=== PATIENT | female | born 1975 | race Caucasian/White ===

== ENCOUNTER 2016-07-22 21:10 | Emergency (ER) | payer OTHER ==
[~2016-07-22] VITALS: Ht 162.6 cm; Wt 156.5 kg
[~2016-07-22 21:10] MED LIST: ALLEGRA 180MG180 MG PO; AMBIEN5 MG PO; ANTIVERT GENERI25 MG PO; BUDEPRION XL150 MG PO; CIPRO 250MG TA250 MG PO; CIPRO 500MG TA500 MG PO; ETODOLAC400 MG PO; FIORICET 325 MG1 TAB PO; FLEXERIL10 MG PO; LASIX20 MG PO; LEVOTHROID0.025 MG PO; LEVOTHYROXIN0.125 M2 PO; LISINOPRIL 10MG10 MG PO; LODINE400 MG PO; LORTAB 5/500 501 TAB PO; MAXZIDE 25 MG-31 TAB PO; MEDROL 4MG. DOSE4 MG PO; METFORMIN 500M500 M1 PO; METFORMIN500 MG PO; NAPROSYN 500MG500 MG PO; NAPROXEN500 MG PO; PHENERGAN 25MG.25 M1 PO; PROPRANOLOL HCL20 MG PO; PROZAC 20MG CAP20 MG PO; TETRACYCLINE PO; TOPAMAX200 MG PO; TOPIRAMATE50 MG PO; VICODIN 5/500 T1 TAB PO; VICODIN 5/6 EACH/PAK OR; VICODIN 7.5/501 EACH PO; XANAX 1MG TABLET1 MG PO; XANAX0.5 MG PO
[2016-07-22 21:38] LABS: HEMOGLOBIN 13.1 g/dL (12.2-16.2); LYMPH # 2.3 K/mm3 (0.7-4.5); LYMPH % 20.1 % (10-50.0)
--- NOTE | 2016-07-22 21:42 | Emergency Room Report ---
History of Present Illness Time Seen by [id number] Presenting Problem in Triage Pt arrived:Wheelchair Presenting Problem:PT STATES SHE FELL AT WORK SATURDAY AND HAD XRAYS, NOTHING WAS BROKEN, NOW RIB CAGE HURTS AND SHARP PAINS ARE RADIATING FROM THE LEFT CHEST WALL TO THE SHOULDER. 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 N Clinical Suspician of Infection? N Mental Status: 1 - Regular (Normal Baseline) Sepsis Risk:Low Sepsis Risk Have you (or family members/close friends) recently traveled outside the [place]? N If Yes, where/when: Have you had exposure to infectious disease within the past month? N TB? Other? Specify: Source patient, RN notes reviewed, family, RN/MD, EMS notes reviewed Exam Limitations no limitations Comment A 41-year-old female patient arriving to the emergency room with LEFT lower wrist pain, worse with decreased rotation and palpation of the anterior chest wall. Patient stated that she was seen here last Saturday after sustaining a fall and landing on her chest. Her chest x-ray taken at that time was negative. She was diagnosed with a contusion. Patient is advising that today pain is worse, denies any other trauma aside of the one encountered 4 days ago. She is also denying any fever, cough, shortness of breath. ALLERGIES Coded Allergies: Cephalosporins (Mild, I-HIVES 08/09/15) sulfamethazine (Mild, I-HIVES 08/09/15) tramadol (Mild, 08/09/15) trimethoprim (Mild, I-HIVES 08/09/15) codeine (08/09/15) Uncoded Allergies: CONTRAST MEDIA (Mild, PASS OUT 04/20/15) Home Medications Active Scripts Levothyroxine Sodium (Levothroid) 250 MCG PO DAILY #30 TAB Ref 1 Prov: 11/15/14 Metformin HCl (Metformin) 500 MG PO BID #60 TAB Ref 2 Prov: 11/15/14 Furosemide (Lasix) 20 MG PO DAILY #30 TAB Ref 3 Prov: 02/02/15 Reported Medications Alprazolam (Xanax 1MG) 2 MG PO DAILYP PRN ANXIETY Propranolol Hcl 20 MG PO BID History Medical History General CAD? No Angina: Yes MD: No Hypertension? Yes Hyperlipidemia? Yes CHF? No DVT? No PE? No COPD? No Asthma? No Anemia? No GERD? Yes Gastric ulcers? No GI Bleed? No Hernia? No Thyroid Problems? Yes Hypothyroidism? Yes CVA? No Seizures? No Diabetes? Yes Insulin Dependent: No Insulin Pump: No Home FSBS? Yes Renal Insuffiency? No End Stage Renal Disease? No UTI? Yes Stones? Yes BPH? No GB Disease: Yes Nephritic Syndrome? No Asplenia? No Hepatitis? No Sickle Cell Disease? No Arthritis? No Migraines? Yes Cataracts? No Glaucoma? No MRSA? No HIV? No TB? No Anxiety? Yes Depression? No Cancer? No More? 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 Family History Family Hx Diabetes Yes CAD Yes Hypertension Yes Hyperlipidemia Yes Cancer Yes TB No Social History Smoking Hx Smoker: Former Smoker Tobacco: No Type Cigarettes Packs/day N/A Alcohol Alcohol: No Review of Systems All Other Systems Reviewed and Negative Cardiovascular chest pain Physical Exam Vital Signs Vital Signs Date Time Temp Pulse Resp B/P Pulse O2 O2 Flow FiO2 Ox Delivery Rate 07/23 0021 98.1 80 16 143/84 99 07/23 0014 18 07/22 2348 74 24 133/79 98 07/22 2323 71 20 167/99 98 2 07/22 2250 77 24 175/80 98 2 07/22 2213 97.9 81 18 113/61 95 07/22 2202 18 07/22 2138 95 07/225 97.9 79 18 145/67 98 General Appearance normal appearance, WD/WN, mild distress Respiratory Status Yes: trachea midline, chest symmetrical, tender on palpation (LEFT side). No: respiratory distress. Lung Sounds bilateral: normal breath sounds, lungs clear. Cardiovascular normal exam, regular rate/rhythm, no peripheral edema, no gallop, no JVD, no murmur, no rub, normal peripheral pulses Gastrointestinal normal bowel sounds, normal exam, non tender, soft, no organomegaly Extremities non-tender, normal range of motion, normal inspection Neurologic alert, tank terminal gauger II-XII nml as tested, normal exam, oriented x 3 Mental status normal mood/affect Skin intact, normal color, warm/dry Medical Decision Making LABS/Meds/Orders Pt receiving controlled substance in ED? No Comment Upon reevaluation patient appears medically stable, still complaining with LEFT lower wrist pain. Advised patient results obtained, need to start antibiotics, and follow-up with PCP if not better within 2-3 days. Results/Orders Laboratory Tests 07/22/162124: B-Natriuretic Peptide 126 H, Lipase 105 07/22/162124: Amylase 32 07/22/162124: Sodium 136, Potassium 3.7, Chloride 100, Carbon Dioxide 28, BUN 14, Creatinine 1.0, Estimated Creat Clear 179, Estimated GFR (MDRD) 61, Glucose 181 H, Calcium 8.8, Total Bilirubin 0.4, AST 41 H, ALT 48, Alkaline Phosphatase 112, Creatine Kinase 35, CK and CKMB Interp 1.0, Troponin I < 0.02, Total Protein 7.5, Albumin 3.2 L, Globulin 4.3 H, Albumin/Globulin Ratio 0.7 L, D-Dimer 348, WBC 11.2 H , RBC 4.29, Hgb 13.1, Hct 38.2, MCV 89.1, RDW 15.2, Plt Count 259, MPV 7.4, Gran % 72.9, Gran # 8.2 H, Lymphocytes % 20.1, Monocytes % 4.9, Eosinophils % 1.8, Basophils % 0.4, Lymphocytes # 2.3, Monocytes # 0.5, Eosinophils # 0.2, Basophils # 0.0, PUBS MCHC 34.2, MCH 30.5 Current Medication Orders Sig/Belinda Start time Last Medication Dose Route Stop Time Status Admin Hydromorphone HCl 0 .STK-MED ONE 07/23 11 DCr .ROUTE Levofloxacin 0 .STK-MED ONE 07/23 11 DC .ROUTE Ondansetron HCl 0 .STK-MED ONE 07/23 11 DC .ROUTE Hydromorphone HCl 1 MG ONCE ONE 07/22 2329 DCr 07/23 IV 07/22 Levofloxacin 750 MG ONCE ONE 07/22 2329 DC 07/23 PO 02/19 2331 0013 Ondansetron HCl 4 MG ONCE ONE 07/220 DC 07/23 IV 07/22 2330 0014 Aspirin 324 MG ONCE ONE 07/22 2199 DCr 07/22 PO 07/22 Morphine Sulfate 4 MG ONCE ONE 07/22 2199 DCr 07/22 IV 07/22 Ondansetron HCl 4 MG ONCE ONE 07/22 2199 DC 07/22 IV 07/22 Ondansetron HCl 0 .STK-MED ONE 07/22 2157 DC .ROUTE Morphine Sulfate 0 .STK-MED ONE 07/22 2156 DCr .ROUTE Aspirin 0 .STK-MED ONE 07/22 2118 DC .ROUTE Aspirin 325 MG ONCE ONE 07/22 2114 CAN PO 07/22 2115 Sodium Chloride 10 ML PRN PRN 07/22 2114 DCD IV 07/23 2114 Orders Procedure Date/time Status DIET-NOTHING BY MOUTH 07/[address] CHEST SCAN REQ 07/[address] CHEST W/O CONTRAST 07/22 2157 Active SERUM , QUAL 07/22 2154 Complete AMYLASE 07/22 2116 Complete ELECTROCARDIOGRAM REQUEST 07/22 2115 Active IV SALINE LOCK 07/22 2115 Active OXYGEN PER NURSE 07/22 2115 Active INBOUND SALES CONSULTANT 07/22 2115 Active TROPONIN I 07/22 2115 Complete LIPASE 07/22 2115 Complete D-DIMER 07/22 2115 Complete CPK 07/22 2115 Complete COMPLETE METABOLIC PANEL 07/22 2115 Complete CKMB 07/22 2115 Complete CBC WITH AUTO DIFF 07/22 2115 Complete BRAIN NATRIURETIC PEPTIDE 07/22 2115 Complete 12 LEAD EKG-PRASHANTH (INITIAL) 07/22 UNK Active CM/EKG CM/emotionally impaired teacher Rhythm Normal Sinus Rhythm Rate 85 Ectopy No Comments No acute ischemic changes EKG rate, NSR, rhythm, no evid. of ischemic chgs, no ectopy, no EKG for comparison, non-spec. ST/Twave chgs, ST elevation, ST depression, LBBB, RBBB, ectopy, abnormal Q waves XRAY/CT/US XRAY/CT/US 1 XRAY chest XR interpretation by reviewed by me Xray Results no infiltrates, normal heart size, normal lung inflation brenden XRAY/CT/US [address] interpretation by discussed w/radiologist CT Results abnormal Comment LLL infiltrate versus small pleural effusion. Departure Departure Time of Disposition 2332 Disposition DC Home or Self Care(routine) Clinical Impression Primary Impression: Pneumonia Qualifiers: Pneumonia type: due to unspecified organism Laterality: left Lung location: lower lobe of lung Qualified Code: J18.9 - Pneumonia, unspecified organism Condition STABLE Referrals Nilson Sandoval MD (Family): [facility] Patient Instructions DI for Contusion, DI for Pneumonia -- Adult Additional Instructions Please take the medication prescribed as directed, follow-up with Dr. Sandoval if not better in 2-3 days. Discharge Counseling Counseled pt/family regarding diagnosis, test results, medications/RX, home care, follow up needs Comment Please take the medication prescribed as directed, follow-up with Dr. Sandoval if not better in 2-3 days. Prescriptions Current Visit Scripts Levofloxacin (Levaquin 750mg) 750 MG PO DAILY #6 TAB OXYCODONE HCL/ACETAMINOPHEN (Percocet 10-325 MG Tablet) 1 TAB PO QIDP PRN pain #12 TAB ED Critical Care Critical Care No at 0704
[2016-07-22 22:07] LABS: BUN 14 mg/dL (7-18); GFR (ESTIMATED) 61 ML/MIN (59-)
[2016-07-22] MEDS ORDERED: LEVAQUIN 750 M750 MG PO (23:35)
[2016-07-22] MEDS ORDERED: LORTAB 10/3251 TAB PO (23:36)
[2016-07-22] MEDS ORDERED: PERCOCET1 TA1 PO (23:37)
[2016-07-23 00:21] VITALS: BP 143/84
--- NOTE | 2016-07-23 06:53 | RADIOLOGY REPORT PS360 ---
CHEST-PORTABLE ORDERING PHYSICIAN : George Chavez MD PATIENT AGE: 41 years GENDER: Female INDICATION: chest pain Chest pain TECHNIQUE: AP portable upright chest COMPARISON: FINDINGS Limited underpenetrated portable chest with suboptimal inspiration. Diaphragms only down to the anterior fourth rib. This crowds markings. Considering this and overall technique is seen nothing definitely acute vascularity is slightly more pronounced but more likely this is due to technique. Heart upper normal in size. Borderline cardiomegaly. Again may be accentuated by technique. No pleural effusion. No pneumothorax. IMPRESSION: Limited portable chest with suboptimal inspiration nothing definitely acute. The suboptimal inspiration technique abdomen accounts for the accentuates markings . Perhaps mild vascular engorgement
--- NOTE | 2016-07-24 14:19 | RADIOLOGY REPORT PS360 ---
CT CHEST W/O CONTRAST ORDERING PHYSICIAN : George Chavez MD PATIENT AGE: 41 years GENDER: Female INDICATION: PAIN Fall one week ago with persistent chest pain TECHNIQUE: Helical CT scanning performed the chest with no IV contrast COMPARISON: Chest film FINDINGS large patient size degrades image resolution. Ribs intact with no rib fractures identified T-spine intact with no compression fractures. Sternum unremarkable. There is some mild central posterior spurring incidentally noted at T5-6 which slightly indents the =. Generous Marginal osteophytes to right at the mid and lower T-spine. Small 4 mm calcified granuloma left lung base. Low lung volumes accentuate markings in contribute to mild bibasilar atelectasis. Bibasilar atelectasis most evident on the left. Favor atelectasis doubt early infiltrate although difficult to exclude early infiltrate at the posterior left base. Small left pleural effusion very tiny pneumothorax Mediastinum. Moderate size right pretracheal lymph node measuring 19 mm x 12 mm. Also precarinal node measuring similar size. Suboptimal inspiration. . Upper abdomen. Diffuse fatty changes of liver there is a liver. Adrenals normal gallbladder removed. Spleen appears intact on this nonenhanced study. Generous size borderline/mild splenomegaly. Spleen measures 13 cm length 12 cm AP X 6.5 cm wide IMPRESSION: ... Large patient size degrades image resolution. Low lung volumes with bibasilar atelectasis. Most evident towards left base.> Right Difficult to exclude a small patchy infiltrate particularly posterior left posterior sulcus region., & Left midlung posterior to the hilum.. Tend to favor mainly atelectasis. Scant left pleural effusion also noted. No rib fracture. No pneumothorax. Moderate size most likely reactive nodes precarinal region, right peritracheal region. Consider follow-up. Mild cardiomegaly. .. Slightly generous size mediastinal lymph nodes observed and may benefit from follow-up.. Borderline splenomegaly
== END 2016-07-23 00:28 | disposition home or self-care (01) ==
LOC: ER 21:10
PROVIDERS: Emergency Medicine
DX: J18.9 Pneumonia, unspecified organism (principal); I10 Essential (primary) hypertension; K21.9 Gastro-esophageal reflux disease without esophagitis; Z72.0 Tobacco use; E11.9 Type 2 diabetes mellitus without complications
CPT/HCPCS: J2405

== ENCOUNTER 2016-12-16 11:36 | Emergency (ER) | payer BC ==
[~2016-12-16] VITALS: Ht 162.6 cm; Wt 147.4 kg
[~2016-12-16 11:36] MED LIST changes: +LEVAQUIN 750 M750 MG PO; +LORTAB 10/3251 TAB PO; +PERCOCET1 TA1 PO
--- NOTE | 2016-12-16 11:57 | Emergency Room Report ---
History of Present Illness Time Seen by [id number] Presenting Problem in Triage Pt arrived:Walked Presenting Problem:right side flank pain progressively worsening over last 4-5 days states increases with movement Onset of symptoms date/time:/ or onset unknown for:MEDICAL HX UNKNOWN Treatment Prior to Arrival: [employer]PER[employer]OR [employer]TING Provided by:SELF Sepsis Risk Assessment: Temp: 98.1 B/P: MAP: Pulse: 106 Resp: 18 Recent fever? N Clinical Suspician of Infection? N Mental Status: 1 - Regular (Normal Baseline) Sepsis Risk:Low Sepsis Risk Have you (or family members/close friends) recently traveled outside the [place]? N If Yes, where/when: Have you had exposure to infectious disease within the past month? TB? Other? Specify: Comment The patient complains of RIGHT flank pain for 5 days. No injury recalled. Pain increases with movement. No fever, vomiting, diarrhea, hematuria, dysuria, frequency. No cough, shortness of breath, or pleurodynia. She has chronic anterior abdominal pain due to irritable bowel syndrome, no change today. She has prior history of kidney stones and kidney infections. She is taking Aleve without improvement. ALLERGIES Coded Allergies: Cephalosporins (Mild, I-HIVES 12/16/16) sulfamethazine (Mild, I-HIVES 12/16/16) tramadol (Mild, 12/16/16) trimethoprim (Mild, I-HIVES 12/16/16) codeine (12/16/16) Uncoded Allergies: CONTRAST MEDIA (Mild, PASS OUT 04/20/15) Home Medications Active Scripts Levothyroxine Sodium (Levothroid) 250 MCG PO DAILY #30 TAB Ref 1 Prov: 11/15/14 Metformin HCl (Metformin) 500 MG PO BID #60 TAB Ref 2 Prov: 11/15/14 Furosemide (Lasix) 20 MG PO DAILY #30 TAB Ref 3 Prov: 02/02/15 Levofloxacin (Levaquin 750mg) 750 MG PO DAILY #6 TAB Prov: 07/22/16 OXYCODONE HCL/ACETAMINOPHEN (Percocet 10-325 MG Tablet) 1 TAB PO QIDP PRN pain #12 TAB Prov: 07/22/16 Reported Medications Alprazolam (Xanax 1MG) 2 MG PO DAILYP PRN ANXIETY Propranolol Hcl 20 MG PO BID History Medical History General CAD? No Angina: Yes OR: No Hypertension? Yes Hyperlipidemia? Yes CHF? No DVT? No PE? No COPD? No Asthma? No Anemia? No GERD? Yes Gastric ulcers? No GI Bleed? No Hernia? No Thyroid Problems? Yes Hypothyroidism? Yes CVA? No Seizures? No Diabetes? Yes Insulin Dependent: No Insulin Pump: No Home FSBS? Yes Renal Insuffiency? No End Stage Renal Disease? No UTI? Yes Stones? Yes BPH? No GB Disease: Yes Nephritic Syndrome? No Asplenia? No Hepatitis? No Sickle Cell Disease? No Arthritis? No Migraines? Yes Cataracts? No Glaucoma? No MRSA? No HIV? No TB? No Anxiety? Yes Depression? No Cancer? No More? 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 Dx UTI. Review of Systems All Other Systems Reviewed and Negative Constitutional denies fever Respiratory denies cough, denies shortness of breath Cardiovascular denies chest pain Gastrointestinal abdominal pain (see HPI), denies nausea, denies vomiting Genitourinary denies: dysuria, frequency, hematuria. Musculoskeletal back pain Physical Exam Vital Signs Vital Signs Date Time Temp Pulse Resp B/P Pulse O2 O2 Flow FiO2 Ox Delivery Rate 12/16 1211 22 12/16 1140 98.1 106 18 100 General Appearance mild distress, uncomfortable, High BMI Eye Exam - bilateral eye normal exam, bilateral eye PERRL, bilateral eye EOMI Ear, Nose, Throat hearing grossly normal, normal ENT inspection Neck normal inspection, non-tender, supple, full range of motion Respiratory Status Yes: trachea midline, chest symmetrical. No: respiratory distress. Lung Sounds bilateral: normal breath sounds, lungs clear. Cardiovascular normal exam, regular rate/rhythm, no peripheral edema, no gallop, no JVD, no murmur, no rub, normal peripheral pulses Gastrointestinal normal bowel sounds, normal exam, non tender, soft, no organomegaly Back normal inspection, RIGHT flank tenderness Extremities non-tender, normal range of motion, normal inspection Neurologic alert, oriented x 3 Mental status normal mood/affect Skin intact, normal color, warm/dry Medical Decision Making LABS/Meds/Orders Pt receiving controlled substance in ED? Yes [employer] was queried for this patient? No Reason not queried - [employer] system downtime Results/Orders Laboratory Tests 12/16/16 1320: Urine Color DK YELLOW, Urine Appearance SL CLOUDY, Urine pH 6.5, Ur Specific [place] 1.015, Urine Protein TRACE H, Urine Ketones NEGATIVE, Urine Blood NEGATIVE, Urine Nitrate NEGATIVE, Urine Bilirubin NEGATIVE, Urine Urobilinogen 0.2, Ur Leukocyte Esterase NEGATIVE, Urine WBC 5-10, Ur Squamous Epith Cells 10- 20, Urine Bacteria 3+, Urine Mucus 3+, Urine Glucose 1+ H 12/16/16 1150: Amylase 24 L, Lipase 140 12/16/16 1150: Sodium 137, Potassium 4.2, Chloride 100, Carbon Dioxide 28, BUN 8, Creatinine 0.8, Estimated Creat Clear 211 H, Estimated GFR (MDRD) 78, Glucose 270 H, Calcium 8.6, Total Bilirubin 0.5, AST 87 H, ALT 76, Alkaline Phosphatase 136 H , Total Protein 7.6, Albumin 3.4, Globulin 4.2 H, Albumin/Globulin Ratio 0.8 L , WBC 9.2, RBC 4.98, Hgb 14.6, Hct 45.8, MCV 92.0, RDW 13.8, Plt Count 221, MPV 9.9, Gran % 71.6, Gran # 6.6, Lymphocytes % 21.2, Monocytes % 5.0, Eosinophils % 1.7, Basophils % 0.5, Lymphocytes # 2.0, Monocytes # 0.5, Eosinophils # 0.2, Basophils # 0.0, PUBS MCHC 31.7 L, MCH 29.1 Current Medication Orders Sig/Belinda Start time Last Medication Dose Route Stop Time Status Admin Hydromorphone HCl 1 MG ONCE ONE 12/16 1214 DCr 12/16 IV 12/17 1215 1211 Ondansetron HCl 4 MG ONCE ONE 12/16 1215 DC 12/16 IV 12/166 1211 Ondansetron HCl 0 .STK-MED ONE 12/16 1209 DC .ROUTE Hydromorphone HCl 0 .STK-MED ONE 12/16 1208 DCr .ROUTE Sodium Chloride 1,000 ML .Q1H1M 12/16 1200 DC 12/16 IV 12/16 1300 1211 Sodium Chloride 10 ML PRN PRN 12/16 1200 AC IV 12/17 1157 Sodium Chloride 1,000 ML .STK-MED ONE 12/16 1155 DC IV Sodium Chloride 10 ML PRN PRN 12/16 1145 AC IV 12/17 1143 Orders Procedure Date/time Status DIET-NOTHING BY MOUTH 12/16 D Active CULTURE, URINE 12/16 1320 Active LIPASE 12/16 1144 Complete AMYLASE 12/[address] ABD/PELVIS REQ 12/16 1143 Complete IV SALINE LOCK 12/16 1143 Active URINALYSIS/COMPLETE 12/16 1143 Complete CBC WITH AUTO DIFF 12/16 1143 Complete CHEM 12 PROFILE 12/16 1143 Complete XRAY/CT/US XRAY/CT/US CT abdomen, pelvis Comment CT scan interpreted by radiologist: Fatty liver, no ureteral calculi or obstruction. Departure Departure Disposition DC Home or Self Care(routine) Clinical Impression Primary Impression: Right flank pain Condition STABLE Patient Instructions DI for Flank Pain Additional Instructions Follow-up urine culture results with your primary care physician in 2-3 days. Additional instructions for BACK PAIN: See your physician as soon as possible for further evaluation. Return immediately if back pain becomes intolerable, or if fever, numbness or weakness of your legs, loss of control of your bowels or bladder. Prescriptions Current Visit Scripts Ciprofloxacin HCl (Cipro 500MG TAB) 500 MG PO BID #20 TAB HYDROCODONE/ACETAMINOPHEN ([place] 5-325 Tablet) 1 TAB PO Q6HP PRN pain #10 TAB ED Critical Care Critical Care No at 1343
--- OUTSIDE RECORDS SUMMARY | 2016-12-16 12:00 | External Medical Summary Rpt ---
Author Author , HAVEN OROURKE Address Unknown Phone [email or web address] Support Name Relationship Address Phone MAXIMUS, Next Of Kin Carrie [facility] [address] [place], [place] [phone] Purpose Continuity of Care Document - 02-04-2013 through 2016 Allergies, Adverse Reactions, Alerts Type Allergy to substance Drug Allergy Adverse Reaction to Substance Substance Reaction Severity IV CONTRAST OVER HEAT,PASS OUT Unknown IVP NA-NAUSEA Unknown MICRODANTIN I-HIVES Unknown Cephalosporin I-HIVES Intermediate Codeine Unknown Unknown Nitrofurantoin I-HIVES Intermediate Trimethoprim Unknown Unknown Sulfamethoxazole I-HIVES Intermediate Tramadol NA-NAUSEA/VOMITING Unknown Medications Na ND Rx Da Fi Fi Am Da Di Ph RX Ph St me C No te ll ll ou ys ag ar # ys at rm s nt no ma ic us Or Da si cy ia de te s n re d SO 00 09 0 No DI 40 -0 UM 97 4- Lo 98 20 ng CH 30 13 er LO 9 RI Ac DE ti ve 0. 9% SO FELIPA TI ON ON 00 09 0 No DA 64 -0 NS 16 4- Lo ET 08 20 ng RO 02 13 er N 5 HC Ac L ti 4 ve MG /2 ML AL Mo 00 09 0 No rp 40 -0 hi 91 4- Lo ne 26 20 ng 06 13 er 8M 9 G/ Ac Ml ti ve Sy ri ng e Sa 63 09 0 No li 80 -0 ne 70 4- Lo 10 20 ng Fl 07 13 er us 5 h Ac 10 ti ML ve Sy ri ng e Vital Signs 02-04-2013 20:14 Name Value Interpretat Reference Comment ion Range BP 66 mm[Hg] Diastolic BP Systolic 140 mm[Hg] Heart 84 /min Rate/Pulse O2% 97 % Respiratory 20 /min Rate 02-04-2013 18:58 Name Value Interpretat Reference Comment ion Range BP 75 mm[Hg] Diastolic BP Systolic 117 mm[Hg] Heart 74 /min Rate/Pulse O2% 100 % Respiratory 20 /min Rate Results Labs Lab Lab Date Result Refere Interp Status Commen Order Detail nces retati t Range on B-HCG Ur Ql (02-04-2013 18:00) B-HCG NEGATIV NEG complet Ur Ql 013 E ed 18:00 URINALYSIS/COMPLETE (02-04-2013 18:00) URINE YELLOW YELLOW complet COLOR 013 ed 18:00 URINE CLEAR CLEAR complet APPEARA 013 ed NCE 18:00 URINE NEGATIV NEG complet GLUCOSE 013 E ed - 18:00 DIPSTIC K URINE NEGATIV NEG complet BILIRUB 013 E ed IN - 18:00 DIPSTIC K URINE NEGATIV NEG complet KETONE 013 E mg/dL ed 18:00 URINE 1.025 1.005-1 complet SPECIFI 013 UNK .030 ed C 18:00 GRAVITY URINE 1+ NEG complet BLOOD 013 ed 18:00 URINE 6.0 UNK 5.0-8.5 complet PH 013 ed 18:00 URINE NEGATIV NEG complet PROTEIN 013 E mg/dL ed - 18:00 DIPSTIC K URINE 0.2 NEG complet UROBILI 013 E.U./dL ed NOGEN - 18:00 DIPSTIC K URINE NEGATIV NEG complet NITRATE 013 E ed - 18:00 DIPSTIC K URINE NEGATIV NEG complet LEUK 013 E ed ESTERAS 18:00 E URINE 3-5 0 complet RBC 013 rbc/hpf ed 18:00 URINE OCC 0-5 complet SQUAMOU 013 #/hpf ed S CELLS 18:00 URINE TRACE O complet BACTERI 013 ed A 18:00 URINE 1+ OCC complet MUCUS 013 ed 18:00 Encounters Encounter Start End Date Code Location Performer Type Date Emergency CHARLI Jolly MD (ER) 3 18:02 3 20:16 [facility]
--- OUTSIDE RECORDS SUMMARY | 2016-12-16 12:00 | External Medical Summary Rpt ---
Author Author , HAVEN OROURKE Address Unknown Phone [email or web address] Support Name Relationship Address Phone MAXIMUS, Next Of Kin Carrie [facility] [address] [place], [place] [phone] Purpose Continuity of Care Document - [...] Jolly MD (ER) 3 18:02 3 20:16 [facility]
--- OUTSIDE RECORDS SUMMARY | 2016-12-16 12:00 | External Medical Summary Rpt ---
Author Author HAVEN Address Unknown Phone [email or web address] Purpose Continuity of Care Document - through 2016
--- OUTSIDE RECORDS SUMMARY | 2016-12-16 12:00 | External Medical Summary Rpt ---
Author Author HAVEN Campbell, HAVEN Campbell Organization [employer] Address Unknown Phone Unavailable
--- OUTSIDE RECORDS SUMMARY | 2016-12-16 12:00 | External Medical Summary Rpt ---
Demographics Preferred Language Occitan Marital Status Unknown Synagogue Affiliation Unknown Race Unknown Ethnic Group Unknown Author Author SMITHA Address Unknown Phone Immunization No patient found.
--- OUTSIDE RECORDS SUMMARY | 2016-12-16 12:00 | External Medical Summary Rpt ---
Demographics Preferred Language Maltese Marital Status Unknown Taoist Affiliation Unknown Race Unknown Ethnic Group Unknown Author Author SMITHA Address Unknown Phone Immunization No patient found.
--- OUTSIDE RECORDS SUMMARY | 2016-12-16 12:00 | External Medical Summary Rpt ---
Author Author HAVEN Address Unknown Phone [email or web address] Purpose Continuity of Care Document - through 2016
[2016-12-16 12:05] LABS: LYMPH % 21.2 % (10-50.0)
[2016-12-16 12:06] LABS: HEMOGLOBIN 14.6 g/dL (12.2-16.2)
--- NOTE | 2016-12-16 13:10 | RADIOLOGY REPORT PS360 ---
CT ABD PELVIS W/O CONTRAST COMPARISON: CT scan abdomen pelvis stone protocol 04/20/2015 HISTORY: Right flank pain for 4 days, history of kidney stones TECHNIQUE: Multiaxial scans obtained from hemidiaphragms the pelvic floor and were performed without IV or oral contrast. Sagittal and coronal reformats were evaluated as well. FINDINGS: Scans through the lower chest show clear lower lung potter, there is a calcified granuloma left lower lobe there is diffuse and prominent fatty infiltration of the liver. Spleen stomach and pancreas appear normal. There has been a previous cholecystectomy. The adrenal glands are normal. The kidneys are lower limits of normal in size and there are no calculi and is no obstructive uropathy. There is a small umbilical hernia containing fat only. Small bowel appears normal. The appendix is normal. There is moderate stool in ascending colon. The uterus is normal size and in the midline. The may be a small right ovarian cyst measuring 2.2 x 2.2 cm. The urinary bladder is partially decompressed, there is no free fluid in the pelvis. There are no suspicious calculi seen in either ureter or in the pelvis. IMPRESSION: Diffuse fatty infiltration of the liver, no evidence of renal or ureteral calculi and I see no other significant abnormality.
[2016-12-16 13:25] LABS: URINE BILIRUBIN - DIPSTICK NEGATIVE (NEG); URINE BLOOD NEGATIVE (NEG)
[2016-12-16] MEDS ORDERED: NORCO 325 MG-51 TAB PO (13:42)
[2016-12-16] MEDS ORDERED: CIPRO 500MG TA500 MG PO (13:42)
[2016-12-16 14:02] VITALS: BP 152/102
== END 2016-12-16 14:03 | disposition home or self-care (01) ==
LOC: ER 11:36
PROVIDERS: Emergency Medicine
DX: R10.11 Right upper quadrant pain (principal); I10 Essential (primary) hypertension; K21.9 Gastro-esophageal reflux disease without esophagitis; E11.9 Type 2 diabetes mellitus without complications
CPT/HCPCS: J2405